=== PATIENT | male | born 1945 | race Caucasian/White ===

== ENCOUNTER 2024-02-10 13:14 | Outpatient (AMB) | payer OTHER, SELFPAY ==
--- NOTE | 2024-02-10 13:22 | A.OFFVIS_ITS ---
Intake Vital Signs 02/10/24 13:23 Height 5 ft 10 in Weight 218 lb BMI 31.3 BP 154/82 H Blood Pressure Location Lt brachial Position Sitting Respiration 17 Pulse 71 Pulse Source Pulse Oximeter Pulse Oximetry (%) 96 Oxygen Delivery Method Room Air Intake Visit Reasons: dementia/polyneuritis 2nd opinion-LVM Intake Note: Pt presents to the office for new pt evaluation and second opinion for dementia and polyneuritis. [employer] Required: No Allergies No Known Allergies Allergy (Verified 02/10/24 13:28) Medication List - Last Reconciled 02/10/24 by Joselin Smith MD amlodipine 5 mg PO DAILY aspirin 81 mg PO DAILY atorvastatin 20 mg PO DAILY baclofen 10 mg PO DAILY bupropion HCl XL 150 mg PO QAM clonazepam 0.25 mg PO BID finasteride 5 mg PO DAILY hydrochlorothiazide 12.5 mg PO QAM multivitamin 1 tab PO DAILY tamsulosin 0.4 mg PO DAILY HPI HPI Comments History of Present Illness Details 78y/o male comes for second opinion rega rding his neurological issues. 21 years ago he started having various neurological issues - generalized weakness, poor balance, speech problems, falls,poor balance. He was seen by multiple neurologists in [place], [facility], [place] , [facility], [facility] with no diagnosis. 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 He has been seeing DR. Cardoso for 21 years - ? diagnosed with MS and was started on Modafanil and clonazepam. In Nov 2023 his insurance denied Modafanil. His also noticed change in personality and has OCD. Dr. Cardoso suggested psychiatry . He was seen by Multiple Sclerosis specialist at [facility] who ruled out MS and suggested a psychiatrist and psychologist. He has severe anxiety that he does not leave the house.He was seen by Dr. Nixon a few times . He does not leave his house except for Doctors appointment. 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 Mother No problems noted. Social History (Updated 02/10/24 @ 13:33 by Maria E Sy CMA) Household Members: Spouse Caregiver staying overnight: Yes Housing: House Alcohol intake: never Patient Tobacco Use Status: Never used Tobacco Use of substances other than those prescribed or required for medical reasons: No Physical Exam Vital Signs: Last Vital Signs Pulse 71 02/10/24 13:23 Resp 17 02/10/24 13:23 BP 154/82 H 02/10/24 13:23 Pulse Ox 96 02/10/24 13:23 Oxygen Delivery Method Room Air 02/10/24 13:23 BMI result Body Mass Index 31.3 Const General: cooperative, comfortable and no acute distress Nutritional Appearance: average body habitus Orientation/consciousness: patient oriented x3 Eyes Pupils: Equal, round and reactive pupils present Neuro Other: wide based and was able to walk with walker Speech- stuttering General: patient oriented x3, tone normal, moves all extremities and no focal motor deficits Cranial nerves: Yes Facial sensation intact/muscles of mastication intact, Yes Equal, round and reactive pupils present, Yes Bilaterally intact EOM present, Yes Nystagmus not present, Yes Normal facial strength present, Yes Midline tongue present and Yes Symmetric palate elevation present Cognition (Neuro): normal cognition Motor exam (neuro): 5/5 motor strength present throughout and Normal motor muscle tone present throughout Deep tendon reflexes (DTR's): Right triceps reflex intensity grade: 2+, Left triceps reflex intensity grade: 2+, Rt Biceps (C5, C6): 2+, Left biceps reflex intensity grade: 2+, Right brachioradialis reflex intensity grade: 2+, Left brachioradialis reflex intensity grade: 2+, Right patellar reflex intensity grade: 2+ and Left patellar reflex intensity grade: 2+ Coordination: [id number] test normal Psych Speech and movement: Slurred speech present Affect: Anxious affect present Orientation What is the (year) (season) (date) (day) (month)?: year, season, day and month Where are we (state) (county) (town or city) (hospital) (floor)?: state, county, town or city, hospital/clinic and floor Registration Name of 3 unrelated objects clearly and slowly, then ask patient to repeat all 3 of them. (1st repeat determines score. Make sure they can repeat all three): object 1, object 2 and object 3 Attention & Calculation (CHOOSE ONE) Spell WORLD backwards (DLROW): 5 letters Recall Ask patient to repeat the 3 items from question #3.: object 1, object 2 and object 3 Language Show patient a wristwatch & ask what it is. Repeat for pencil.: watch and pencil Ask the patient to repeat the phrase 'No ifs, ands, or buts' after you.: correct Ask the patient to 'take a piece of paper with their right hand' 'fold paper in half' 'place paper on floor': take paper in right hand, fold paper in half and place paper on floor Print the sentence 'CLOSE YOUR EYES' on a piece. If patient actually closes eyes then score.: followed written direction Give patient a blank piece of paper & ask to write a sentence. Score if it contains a noun & verb.: sentence contains subject and verb Ask patient to copy figure of intersecting pentagons exactly. Score if all 10 angles & 2 intersects are included.: all 10 angles present & 2 are intersected Score Score: 29 Assessment & Plan Assessment & Plan (1) Gait disorder: Comment: likely functional - he had an extensive evaluation with multiple neurologists in the past 20 years Code(s): R26.9 - Unspecified abnormalities of gait and mobility (2) Anxiety: Code(s): F41.9 - Anxiety disorder, unspecified (3) Cognitive and behavioral changes: Comment: likely mood related Code(s): R41.89 - Other symptoms and signs involving cognitive functions and awareness; R46.89 - Other symptoms and signs involving appearance and behavior Plan I suggested he see for reevaluation of anxiety and OCD I will refer him to PT for gait training MRI Brain F/u with Dr. Cardoso He did well on MMSE today Orders: Orders MR head/brain wo con Today R26.9 - Unspecified abnormalities of gait and mobility PT Evaluation and Treatment Today R26.9 - Unspecified abnormalities of gait and mobility Coding Level of Care Code New Pt Level 4 (77331) Diagnoses Gait disorder R26.9 Anxiety F41.9 Cognitive and behavioral changes R41.89; R46.89
[2024-02-10 13:23] VITALS: BP 154/82; PULSE 71; RESP 17; O2SAT 96; BMI 31.3
== END 2024-02-10 14:16 | disposition home or self-care (01) ==
PROVIDERS: PCP Internal Medicine; Referring Provider Nurse Practitioner Primary Care; Visit Provider Psychiatry & Neurology Neurology
DX: R26.9 Unspecified abnormalities of gait and mobility (principal); F41.9 Anxiety disorder, unspecified; R41.89 Other symptoms and signs involving cognitive functions and awareness
CPT/HCPCS: 99204

== ENCOUNTER → 2024-02-10 13:14 | Outpatient (BNVA) | payer OTHER, SELFPAY | PROVIDERS: PCP Internal Medicine; Referring Provider Nurse Practitioner Primary Care; Visit Provider Psychiatry & Neurology Neurology ==

== ENCOUNTER 2024-04-16 10:14 | Outpatient (REF) | payer OTHER, SELFPAY ==
--- NOTE | ~2024-04-16 | MR_ITS ---
EXAMINATION: MR BRAIN WITHOUT CONTRAST CLINICAL INFORMATION: Abnormalities of gait and mobility COMPARISON: MRI brain on 05/04/2019 TECHNIQUE: MRI of the brain was obtained using routine sequences without contrast. FINDINGS: Ventricles, sulci and cisterns are dilated. Numerous T2 hyperintense lesions are seen in bilateral frontal and parietal subcortical and deep white matters. Left sublenticular arachnoid cyst is seen measuring 0.9 x 0.6 cm in size. No focal brainstem or cerebellar lesions with abnormal signal can be seen. Diffusion weighted images show no abnormal regional decrease in diffusion. Normal flow voids of major intracerebral blood vessels are seen in the visualized portion. The pituitary gland is normal. Optic chiasm is not displaced. Cerebellar tonsils position is normal. Bilateral ethmoid sinuses show mild mucosal thickening. MR/MR head/brain wo con IMPRESSION: 1. 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 2. No acute cerebral infarction is seen. 3. No evidence of space occupying mass lesion could be found. 4. No evidence of intracranial hemorrhage.
== END 2024-04-16 10:15 | disposition home or self-care (01) ==
LOC: HO.MRI 10:14
PROVIDERS: PCP Internal Medicine; Visit Provider Psychiatry & Neurology Neurology
DX: R26.9 Unspecified abnormalities of gait and mobility (principal)
CPT/HCPCS: 70551